=== PATIENT | female | born 1960 | race Caucasian/White ===

== ENCOUNTER → 2019-06-16 | Outpatient (CLI) | payer MEDICAID ==
[2019-06-16 12:24] LABS: Basophils # (auto) 0 uL; Basophils % (auto) 0.9 % (0.0-2.0); Eosinophils # (auto) 0.3 uL; Eosinophils % (auto) 6.7 % (0.0-7.0); Hematocrit 34.7 % (36.0-46.0); Hemoglobin 11.6 g/dL (12.2-16.2); Lymphocytes % (auto) 21.3 % (10.0-50.0); Mean Corpuscular Hemoglobin 33.2 pg (28.0-32.0); Mean Corpuscular Hgb Conc. 33.5 g/dL (32.0-36.0); Monocytes # (auto) 0.3 uL; Monocytes % (auto) 6.4 % (0.0-12.0); Neutrophils # (auto) 2.9 uL; Neutrophils % (auto) 64.7 % (37.0-80.0); Platelet Count (auto) 251 10^3/uL (140-450); Red Cell Distribution Width 13.8 % (11.8-14.3); White Blood Cell 4.5 10^3/uL (4.4-10.8)
[2019-06-16 13:18] LABS: Potassium 4.4 mmol/L (3.5-5.1)
[2019-06-16 13:26] LABS: Albumin 3.3 g/dL (3.4-5.0); BUN/Creatinine Ratio 14.1; Bilirubin, Total 0.5 mg/dL (0.2-1.0); Total Protein 7.1 g/dL (6.4-8.2)
== END | disposition home or self-care (01) ==
LOC: LAB 11:35
PROVIDERS: ATTEND Nurse Practitioner
DX: E78.5 Hyperlipidemia, unspecified (principal); E55.9 Vitamin D deficiency, unspecified; E03.9 Hypothyroidism, unspecified
CPT/HCPCS: 36415; 80053; 82306; 84443; 85025

== ENCOUNTER 2019-09-12 20:18 | Emergency (ER) | payer MEDICAID ==
[~2019-09-12] VITALS: Ht 160 cm; Wt 63.5 kg
[~2019-09-12 20:18] MED LIST: LEVO75TA6 PO
[2019-09-12] MEDS ORDERED: ACETAMINOPHEN 325 MG TAB PO ONE (20:45)
[2019-09-13] MEDS ORDERED: KETOROLAC TROMETH 60MG/2ML VIAL IM ONE (01:00)
[2019-09-13] MEDS ORDERED: methylPREDNISolone SOD SUCC 125 MG/2 ML VL IM ONE (01:00)
[2019-09-13 01:53] VITALS: BP 122/69
== END 2019-09-13 02:38 | disposition home or self-care (01) ==
LOC: ER 20:24
DX: S82.434A Nondisplaced oblique fracture of shaft of right fibula, initial encounter for closed fracture (principal); S02.2XXA Fracture of nasal bones, initial encounter for closed fracture; M25.461 Effusion, right knee; M54.2 Cervicalgia; F17.210 Nicotine dependence, cigarettes, uncomplicated; V29.49XA Motorcycle driver injured in collision with other motor vehicles in traffic accident, initial encounter; Y93.89 Activity, other specified; Y92.89 Other specified places as the place of occurrence of the external cause; Y99.8 Other external cause status
CPT/HCPCS: 29515; 70450; 70486; 72125; 73562; 73610; 96372; 99284; J1885; J2930

== ENCOUNTER 2020-07-12 12:09 | Emergency (ER) | payer MEDICAID ==
[~2020-07-12] VITALS: Ht 162.6 cm; Wt 59.0 kg
[2020-07-12 12:26] VITALS: BP 134/96
== END 2020-07-12 13:49 | disposition home or self-care (01) ==
LOC: ER 12:09
DX: S42.002D Fracture of unspecified part of left clavicle, subsequent encounter for fracture with routine healing (principal); H53.2 Diplopia; Z76.0 Encounter for issue of repeat prescription; E07.9 Disorder of thyroid, unspecified; V89.2XXD Person injured in unspecified motor-vehicle accident, traffic, subsequent encounter
CPT/HCPCS: 70450

== ENCOUNTER 2024-05-18 06:35 | Inpatient (IN) | payer MEDICAID ==
[2024-05-16 14:14] LABS: Basophils # (auto) 0.1 10 ^3/uL (0-0.2); Eosinophils # (auto) 0.4 10 ^3/uL (0-0.8); Eosinophils % (auto) 7.3 % (0.0-7.0); Hematocrit 45.7 % (36.0-46.0); Hemoglobin 15.5 g/dL (12.2-16.2); Lymphocytes # (auto) 1.5 10 ^3/uL (0.4-5.4); Lymphocytes % (auto) 28.8 % (10.0-50.0); Mean Corpuscular Hemoglobin 31.7 pg (28.0-32.0); Mean Corpuscular Volume 93.1 fL (80.0-100.0); Monocytes # (auto) 0.4 10 ^3/uL (0-1.3); Monocytes % (auto) 7.1 % (0.0-12.0); Neutrophils % (auto) 55.8 % (37.0-80.0); Red Cell Distribution Width 13.4 % (11.8-14.3); White Blood Cell 5.3 10^3/uL (4.4-10.8)
[2024-05-16 14:25] LABS: Urine Bacteria FEW /hpf (None Seen); Urine Blood Negative /uL (Negative); Urine Clarity Clear (Clear); Urine Color Light-Yellow (Yellow); Urine Hyaline Cast FEW /lpf (0 - 2); Urine Protein, UAD Negative (Negative); Urine Specific Gravity 1.013 (1.001-1.035); Urine Urobilinogen Normal (Negative); Urine WBC 1 /hpf (0 - 5)
[2024-05-16 14:35] LABS: INR 0.98 (0.9-1.15); Partial Thromboplastin Time 27.5 SEC (24.5-34.5); Prothrombin Time 10.4 sec (9.3-11.8)
[2024-05-16 14:45] LABS: Alanine Aminotransferase 18 U/L (7-40); Albumin 4.1 g/dL (3.2-4.8); Alkaline Phosphatase 113 U/L (46-116); Anion Gap 3 (5-15); Aspartate Aminotransferase 18 U/L (13-40); BUN/Creatinine Ratio 9.7 (10.0-20.0); Bilirubin, Total 0.9 mg/dL (0.2-1.0); Blood Urea Nitrogen 9 mg/dL (9-23); Carbon Dioxide 27 mmol/L (20-30); Chloride 108 mmol/L (98-107); Glucose 92 mg/dL (74-106); Potassium 5.5 mmol/L (3.5-5.1); Sodium 138 mmol/L (136-145); Total Protein 7.5 g/dL (5.7-8.2)
[~2024-05-18] VITALS: Ht 162.6 cm; Wt 64.2 kg
[~2024-05-18 06:35] MED LIST changes: +LEVO100T8 PO; -LEVO75TA6 PO
[2024-05-18] MEDS: BUPIVACAINE 0.25% INJ 50ML VIAL ONE (06:54)
[2024-05-18] MEDS: ROPIVACAINE 0.5% (5MG/ML) 20ML AMPULE IJ ONE (07:02)
[2024-05-18] MEDS ORDERED: KETAMINE 50mg/ML 1ml syringe ONE (07:07)
[2024-05-18] MEDS ORDERED: PHENYLEPHRINE HCL 10 MG/ML VL ONE (07:08)
[2024-05-18] MEDS ORDERED: ePHEDrine SULFATE 50 MG/ML AMP ONE (07:08)
[2024-05-18] MEDS ORDERED: DexAMETHasone SOD PHOS 10MG/1ML VIAL INJ ONE (07:08)
[2024-05-18] MEDS ORDERED: MIDAZOLAM HCL 2MG/2ML 2ml VIAL (1mg/ml) ONE (07:08)
[2024-05-18] MEDS ORDERED: KETOROLAC TROMETH 30 MG/ML 1ML VIAL ONE (07:08)
[2024-05-18] MEDS ORDERED: PROPOFOL 10 MG/ML 20 ML IV ONE (07:08)
[2024-05-18] MEDS ORDERED: GLYCOPYRROLATE 0.2 MG/ML 1ML VIAL ONE (07:08)
[2024-05-18] MEDS ORDERED: fentaNYL CITRATE 100 MCG/2 ML VL ONE (07:08)
[2024-05-18] MEDS ORDERED: HYDROmorphone HCL 2 MG/ML VL/or syr ONE (07:08)
[2024-05-18] MEDS: ceFAZolin 2 GM/D5W50ml 50 ML IV ONE (07:42)
[2024-05-18] MEDS: TRANEXAMIC ACID 20 ML ONE (07:48)
[2024-05-18] MEDS ORDERED: ROCURONIUM 10MG/ML 10ML VIAL IV ONE (08:07)
[2024-05-18] MEDS: CLINDAMYCIN 900MG IV 50 ML IV ONE (08:15)
[2024-05-18] MEDS ORDERED: SUGAMMADEX 200mg/2ml Vial (100MG/ML) IV ONE ×2 (09:07→10:30)
[2024-05-18 11:02] VITALS: RESP 11; O2SAT 96
[2024-05-18] MEDS ORDERED: HYDROmorphone HCL 2 MG/ML VL/or syr IV PRN (11:15)
[2024-05-18] MEDS ORDERED: LEVOTHYROXINE SODIUM 100 MCG TAB PO ONE (11:30)
[2024-05-18] MEDS: LACTATED RINGER'S 1,000 ML IV SCH (11:45)
[2024-05-18] MEDS ORDERED: MORPHINE SULFATE INJ 2 MG/ml SYRG IV PRN ×2 (11:45)
[2024-05-18] MEDS: ceFAZolin 1GM/50ML 50 ML IV SCH (11:45)
[2024-05-18] MEDS ORDERED: ONDANSETRON HCL 4 MG/2 ML VIAL IV PRN (11:45)
[2024-05-18] MEDS ORDERED: ACETAMINOPHEN 325 MG TAB PO PRN (11:45)
[2024-05-18] MEDS ORDERED: NITROGLYCERIN 0.4 MG SL TAB SL PRN ×2 (11:45)
[2024-05-18] MEDS ORDERED: BISACODYL 5 MG EC TAB PO PRN (11:45)
[2024-05-18] MEDS: ONDANSETRON HCL 4 MG/2 ML VIAL ONE (13:46)
[2024-05-18] MEDS: ONDANSETRON HCL 4 MG/2 ML VIAL IV ONE (13:46)
[2024-05-18 16:33] VITALS: BP 131/71; PULSE 67; RESP 16; TEMP 97.3; O2SAT 96
[2024-05-18 17:46] VITALS: O2SAT 98
[2024-05-18 20:00] VITALS: RESP 15; O2SAT 96
[2024-05-18 21:00] VITALS: BP 143/88; PULSE 77; RESP 20; TEMP 97.8; O2SAT 96
[2024-05-18] MEDS: DOCUSATE SOD 100 MG CAP PO SCH (21:50)
[2024-05-18 22:35] VITALS: O2SAT 96
[2024-05-19 01:00] VITALS: BP 141/81; PULSE 78; RESP 20; TEMP 97.9; O2SAT 97
[2024-05-19 05:00] VITALS: BP 108/57; PULSE 71; RESP 20; TEMP 98.1; O2SAT 93
[2024-05-19] MEDS: LEVOTHYROXINE SODIUM 100 MCG TAB PO SCH (05:42)
[2024-05-19 05:56] LABS: Basophils # (auto) 0 10 ^3/uL (0-0.2); Basophils % (auto) 0.1 % (0.0-2.0); Eosinophils # (auto) 0 10 ^3/uL (0-0.8); Hematocrit 34.2 % (36.0-46.0); Hemoglobin 11.5 g/dL (12.2-16.2); Lymphocytes # (auto) 0.9 10 ^3/uL (0.4-5.4); Mean Corpuscular Hemoglobin 31.6 pg (28.0-32.0); Mean Corpuscular Hgb Conc. 33.7 g/dL (32.0-36.0); Mean Corpuscular Volume 93.8 fL (80.0-100.0); Monocytes # (auto) 0.9 10 ^3/uL (0-1.3); Monocytes % (auto) 7.8 % (0.0-12.0); Neutrophils # (auto) 9.8 10 ^3/uL (1.6-8.6); Neutrophils % (auto) 84.1 % (37.0-80.0); Nucleated Red Blood Cells % 0.1 %; Red Blood Cells 3.64 10^6/uL (4.0-5.20); Red Cell Distribution Width 13.6 % (11.8-14.3); White Blood Cell 11.6 10^3/uL (4.4-10.8)
[2024-05-19 06:21] LABS: Calcium 8.6 mg/dL (8.5-10.1); Chloride 107 mmol/L (98-107); Potassium 4.5 mmol/L (3.5-5.1); Sodium 136 mmol/L (136-145)
[2024-05-19 06:22] LABS: Anion Gap 6 (5-15); Carbon Dioxide 23 mmol/L (20-30)
[2024-05-19 06:27] LABS: BUN/Creatinine Ratio 15.7 (10.0-20.0); Blood Urea Nitrogen 11 mg/dL (9-23); Glucose 122 mg/dL (74-106)
[2024-05-19 07:08] VITALS: O2SAT 94
[2024-05-19 08:07] VITALS: BP 130/70; PULSE 60; RESP 18; TEMP 98; O2SAT 99
[2024-05-19] MEDS: HYDROmorphone HCL 2 MG/ML VL/or syr IV PRN (09:07)
[2024-05-19] MEDS: HYDROcodone-ACET 10/325MG TAB PO PRN (09:18)
[2024-05-19 11:46] VITALS: BP_SYST 131; BP_SYST 136; BP_DIAS 67; BP_DIAS 69; PULSE 75; PULSE 83; RESP 17; TEMP 97.8; TEMP 97.9; O2SAT 94; O2SAT 99
[2024-05-19] MEDS: HYDROcodone-ACET 5/325MG TAB PO PRN (12:55)
[2024-05-19] MEDS ORDERED: HYDR-4902 PO (13:09)
[2024-05-19 14:06] VITALS: TEMP 36.6
[2024-05-19] MEDS: ASPirin 81 mg TAB PO ONE (14:31)
== END 2024-05-19 16:00 | disposition home or self-care (01) | DRG 322 ==
LOC: SUR 06:35 → OVERFLOW 11:40 → CENTRAL 14:50
PROVIDERS: ADMIT Physician Assistant; ATTEND Family Medicine
PROC: 0LS40ZZ Reposition Left Upper Arm Tendon, Open Approach (ICD-10-PCS; 2024-05-18)
PROC: 3E0T3BZ Introduction of Anesthetic Agent into Peripheral Nerves and Plexi, Percutaneous Approach (ICD-10-PCS; 2024-05-18)
PROC: 0RRK0J6 Replacement of Left Shoulder Joint with Synthetic Substitute, Humeral Surface, Open Approach (ICD-10-PCS; principal; 2024-05-18 07:25)
DX: M19.012 Primary osteoarthritis, left shoulder (principal); R71.0 Precipitous drop in hematocrit; E03.9 Hypothyroidism, unspecified
CPT/HCPCS: 36415; 73020; 76000; 80048; 80053; 81001; 85025; 85610; 85730; 86850; 86900; 86901; 94760; A4565; G0378; J1100; J1885; J2250; J2405; J2704; J3490